=== PATIENT | female | born 1945 | race Caucasian/White ===

== ENCOUNTER → 2019-11-20 | Outpatient (CLI) | payer MEDICARE, MEDICAID | END | disposition home or self-care (01) | LOC: CFH 11:34 | PROVIDERS: ATTEND Nurse Practitioner | DX: Z12.31 Encounter for screening mammogram for malignant neoplasm of breast (principal); N63.12 Unspecified lump in the right breast, upper inner quadrant; M85.88 Other specified disorders of bone density and structure, other site; N95.9 Unspecified menopausal and perimenopausal disorder | CPT/HCPCS: 77080; 77067 ==

== ENCOUNTER → 2019-12-13 | Outpatient (CLI) | payer MEDICARE, MEDICAID | END | disposition home or self-care (01) | LOC: CFH 09:58 | PROVIDERS: ATTEND Internal Medicine Cardiovascular Disease | DX: I08.8 Other rheumatic multiple valve diseases (principal) | CPT/HCPCS: 93306 ==

== ENCOUNTER 2020-05-15 19:42 | Inpatient (IN) | payer MEDICARE, MEDICAID ==
[~2020-05-15] VITALS: Ht 170.2 cm; Wt 80.9 kg
[2020-05-15] MEDS ORDERED: FLEC50TA25 PO (19:55)
[2020-05-15] MEDS ORDERED: LEVO88TA4 PO (19:55)
[2020-05-15] MEDS ORDERED: APIX5TAB PO (19:55)
[2020-05-15] MEDS ORDERED: DILT120T3 PO (19:55)
--- NOTE | 2020-05-15 20:12 | NUR ---
Pt provided blankets, waiting for provider to evaluate. Pt provided call [facility] and instructed on use.
[2020-05-15 20:52] LABS: BASOPHILS # (AUTO) 0.03 x10^3/uL (0-0.1); BASOPHILS % (AUTO) 1 % (0-1); EOSINOPHILS % (AUTO) 1 % (1-7); LYMPHOCYTES # (AUTO) 1.52 x10^3/uL (1-3.4); LYMPHOCYTES % (AUTO) 22 % (22-44); MD NO; MEAN CORPUSCULAR HEMOGLOBIN 30.9 pg (27.0-34.8); MEAN CORPUSCULAR HGB CONC 33.5 g/dL (32.4-35.8); MEAN PLATELET VOLUME 7.9 fL (7.4-10.4); MONOCYTES # (AUTO) 0.57 x10^3/uL (0.2-0.8); MONOCYTES % (AUTO) 8 % (2-9); NEUTROPHILS # (AUTO) 4.68 x10^3/uL (1.8-6.8); NEUTROPHILS % (AUTO) 68 % (42-75); PLATELET COUNT 189 x10^3/uL (130-400); RED CELL DISTRIBUTION WIDTH 12.6 % (9.6-15.2)
[2020-05-15 21:01] LABS: ALANINE AMINOTRANSFERASE 15 U/L (12-78); ALBUMIN 3.3 g/dL (3.4-5.0); ANION GAP 5 mmol/L (5-15); CHLORIDE 104 mmol/L (98-107)
[2020-05-15 21:06] LABS: ALKALINE PHOSPHATASE 78 U/L (45-117); BILIRUBIN,TOTAL 0.3 mg/dL (0.2-1.0); FREE T4 (FREE THYROXINE) 0.99 ng/dL (0.76-1.46); TOTAL PROTEIN 6.4 g/dL (6.4-8.2); TROPONIN I < 0.015 ng/mL (0.000-0.045)
[2020-05-15] MEDS ORDERED: SODIUM CHLORIDE 0.9% 1,000 ML IV SCH (23:19)
[2020-05-15] MEDS ORDERED: hydrALAzine 20 MG/ML, 1ML IVPush PRN (23:30)
[2020-05-15] MEDS ORDERED: ONDANSETRON ODT 4 MG PO PRN (23:30)
[2020-05-15] MEDS ORDERED: LEVOTHYROXINE 25 MCG TABLET PO ONE (23:30)
[2020-05-15] MEDS ORDERED: morphine SULFATE 10 MG/ML, 1ML IVPush PRN (23:30)
[2020-05-15] MEDS ORDERED: ACETAMINOPHEN 325 MG TABLET PO PRN (23:30)
[2020-05-15] MEDS ORDERED: POLYETHYLENE GLYCOL 17 GM PACKET PO PRN (23:30)
[2020-05-15] MEDS ORDERED: DOCUSATE 100 MG CAPSULE PO PRN (23:30)
[2020-05-15] MEDS ORDERED: OXYcodone IR 5MG TABLET PO PRN (23:30)
[2020-05-15] MEDS ORDERED: BISACODYL 10 MG SUPP PR PRN (23:30)
[2020-05-15] MEDS ORDERED: ONDANSETRON 2MG/ML, 2ML IVPush PRN (23:30)
[2020-05-15] MEDS ORDERED: PROMETHAZINE 25 MG/ML, 1ML IM PRN (23:30)
[2020-05-16 00:17] VITALS: BP 150/73
[2020-05-16 02:18] VITALS: BP 151/89
[2020-05-16] MEDS: LEVOTHYROXINE 75 MCG TABLET PO SCH (05:30)
[2020-05-16 06:31] LABS: BASOPHILS # (AUTO) 0.03 x10^3/uL (0-0.1); BASOPHILS % (AUTO) 1 % (0-1); EOSINOPHILS # (AUTO) 0.09 x10^3/uL (0-0.4); EOSINOPHILS % (AUTO) 2 % (1-7); LYMPHOCYTES # (AUTO) 1.37 x10^3/uL (1-3.4); LYMPHOCYTES % (AUTO) 24 % (22-44); MD NO; MEAN CORPUSCULAR HEMOGLOBIN 30.7 pg (27.0-34.8); MEAN CORPUSCULAR HGB CONC 32.8 g/dL (32.4-35.8); MEAN PLATELET VOLUME 8.3 fL (7.4-10.4); MONOCYTES # (AUTO) 0.46 x10^3/uL (0.2-0.8); MONOCYTES % (AUTO) 8 % (2-9); NEUTROPHILS # (AUTO) 3.85 x10^3/uL (1.8-6.8); NEUTROPHILS % (AUTO) 66 % (42-75); PLATELET COUNT 212 x10^3/uL (130-400); RED BLOOD COUNT 4.49 x10^6/uL (3.82-5.3); RED CELL DISTRIBUTION WIDTH 12.8 % (9.6-15.2)
[2020-05-16 06:39] LABS: CHLORIDE 108 mmol/L (98-107)
[2020-05-16 06:46] LABS: ALANINE AMINOTRANSFERASE 16 U/L (12-78); ALBUMIN 3.6 g/dL (3.4-5.0); ALKALINE PHOSPHATASE 83 U/L (45-117); ANION GAP 5 mmol/L (5-15); BILIRUBIN,TOTAL 0.6 mg/dL (0.2-1.0); CALCIUM 8.5 mg/dL (8.5-10.1); CHOL/HDL RATIO 3.9; CHOLESTEROL, TOTAL 222 mg/dL (140-239); HDL CHOL % 26 % (28-40); HDL CHOLESTEROL (DIRECT) 57 mg/dL (40-60); LDL CHOLESTEROL,CALCULATED 141 mg/dL (54-169); LDL/HDL RATIO 2.5 (0.5-3.0); TOTAL PROTEIN 6.9 g/dL (6.4-8.2); TRIGLYCERIDES 122 mg/dL (50-200); VLDL CHOLESTEROL 24 mg/dL (0-25)
[2020-05-16 07:11] VITALS: BP 137/80
[2020-05-16] MEDS ORDERED: DILTIAZEM 120 MG TABLET PO SCH (09:00)
[2020-05-16] MEDS ORDERED: APIXABAN 5 MG TABLET PO SCH (09:00)
[2020-05-16] MEDS: FLECAINIDE 50MG TABLET PO SCH ×2 (09:38→20:21)
[2020-05-16 12:37] VITALS: BP 169/78
[2020-05-16] MEDS: DILTIAZEM 120 MG CAP.ER.24H PO SCH (12:43)
[2020-05-16 20:19] VITALS: BP 124/65
[2020-05-17 00:25] VITALS: BP 122/75
[2020-05-17] MEDS: LEVOTHYROXINE 75 MCG TABLET PO SCH (05:27)
[2020-05-17 06:54] VITALS: BP 131/77
[2020-05-17] MEDS ORDERED: REGADENOSON 0.4 MG/5 ML SYRINGE ONE (08:51)
[2020-05-17] MEDS: FLECAINIDE 50MG TABLET PO SCH (10:16)
[2020-05-17] MEDS: DILTIAZEM 120 MG CAP.ER.24H PO SCH (10:18)
[2020-05-17] MEDS ORDERED: LEVO75TA PO (12:38)
[2020-05-17 14:27] VITALS: BP 123/73
== END 2020-05-17 14:57 | disposition home or self-care (01) | DRG 309 ==
LOC: ED 21:01 → EDIP 22:25 → 4EST 05-16 00:01 → DCLOUNGE 05-17 14:52
PROVIDERS: ADMIT Internal Medicine; ATTEND Hospitalist
DX: I49.5 Sick sinus syndrome (principal); D68.69 Other thrombophilia; I48.0 Paroxysmal atrial fibrillation; E03.9 Hypothyroidism, unspecified; I10 Essential (primary) hypertension; E78.5 Hyperlipidemia, unspecified; F41.9 Anxiety disorder, unspecified; Z85.3 Personal history of malignant neoplasm of breast; Z87.891 Personal history of nicotine dependence
CPT/HCPCS: 36415; 71045; 78452; 80053; 80061; 83036; 83605; 83735; 84439; 84443; 84484; 85025; 93005; 93017; 93306; G0378; J2785; A9502; J7030

== ENCOUNTER → 2020-06-05 | Outpatient (CLI) | payer MEDICARE, MEDICAID ==
[~2020-06-05] MED LIST: APIX5TAB PO; DILT120T3 PO; FLEC50TA25 PO; LEVO75TA PO; LEVO88TA4 PO
[2020-06-05 12:53] LABS: BASOPHILS # (AUTO) 0.02 x10^3/uL (0-0.1); BASOPHILS % (AUTO) 0 % (0-1); EOSINOPHILS # (AUTO) 0.08 x10^3/uL (0-0.4); EOSINOPHILS % (AUTO) 1 % (1-7); LYMPHOCYTES # (AUTO) 1.55 x10^3/uL (1-3.4); LYMPHOCYTES % (AUTO) 27 % (22-44); MD NO; MEAN CORPUSCULAR HEMOGLOBIN 30.9 pg (27.0-34.8); MEAN CORPUSCULAR HGB CONC 33.2 g/dL (32.4-35.8); MEAN CORPUSCULAR VOLUME 93.1 fL (80-100); MEAN PLATELET VOLUME 8.3 fL (7.4-10.4); MONOCYTES # (AUTO) 0.44 x10^3/uL (0.2-0.8); MONOCYTES % (AUTO) 8 % (2-9); NEUTROPHILS # (AUTO) 3.61 x10^3/uL (1.8-6.8); NEUTROPHILS % (AUTO) 63 % (42-75); PLATELET COUNT 194 x10^3/uL (130-400); RED BLOOD COUNT 4.15 x10^6/uL (3.82-5.3); RED CELL DISTRIBUTION WIDTH 13.2 % (9.6-15.2)
[2020-06-05 13:01] LABS: CHLORIDE 108 mmol/L (98-107)
[2020-06-05 13:06] LABS: ANION GAP 6 mmol/L (5-15); CALCIUM 8.8 mg/dL (8.5-10.1); CREATININE 0.65 mg/dL (0.55-1.02)
== END | disposition home or self-care (01) ==
LOC: CFH 08:43
PROVIDERS: ATTEND Nurse Practitioner Family
DX: E03.9 Hypothyroidism, unspecified (principal); E78.2 Mixed hyperlipidemia; I48.0 Paroxysmal atrial fibrillation; I49.5 Sick sinus syndrome
CPT/HCPCS: 36415; 80048; 85025

== ENCOUNTER 2020-06-09 10:31 | Observation (INO) | payer MEDICARE, MEDICAID ==
[~2020-06-09] VITALS: Ht 170.2 cm; Wt 77.3 kg
[2020-06-09] MEDS ORDERED: Vitamin D3 PO (11:29)
[2020-06-09] MEDS ORDERED: VIT1TABL46 PO (11:29)
[2020-06-09] MEDS ORDERED: LEVO75TA PO (11:29)
[2020-06-09] MEDS ORDERED: DILT-8 PO (11:29)
[2020-06-09] MEDS ORDERED: POTA20TA14 PO (11:29)
[2020-06-09] MEDS ORDERED: PLEASE ENTER HEIGHT AND WEIGHT MC SCH (11:30)
[2020-06-09] MEDS ORDERED: CEFAZOLIN PMX 1GM/50ML 50 ML IVPB ONE (11:30)
[2020-06-09 11:32] VITALS: BP 144/81
[2020-06-09] MEDS ORDERED: DIPHENHYDRAMINE 50 MG/ML, 1ML ONE (14:08)
[2020-06-09] MEDS ORDERED: FENTANYL PF 100 MCG/2ML ONE (14:12)
[2020-06-09] MEDS ORDERED: MIDAZOLAM 1 MG/ML, 2ML ONE (14:12)
[2020-06-09] MEDS: SODIUM CHLORIDE 0.9% 1,000 ML IV SCH ×2 (14:58→19:03)
[2020-06-09] MEDS ORDERED: HOLD MEDICATION MC PRN (15:00)
[2020-06-09] MEDS ORDERED: HYDROcodone/APAP 5/325 TABLET PO PRN (15:00)
[2020-06-09] MEDS ORDERED: CEFAZOLIN PMX 1GM/50ML 50 ML IVPB SCH (15:00)
[2020-06-09 19:11] VITALS: BP 125/78
[2020-06-09] MEDS: FLECAINIDE 50MG TABLET PO SCH (20:59)
[2020-06-09] MEDS: CEFAZOLIN PMX 1GM/50ML 50 ML IVPB SCH (20:59)
[2020-06-09] MEDS: SODIUM CHLORIDE FLUSH 10ML SYR IVF SCH (20:59)
[2020-06-09] MEDS: APIXABAN 5 MG TABLET PO SCH (20:59)
[2020-06-10 01:24] VITALS: BP 121/75
[2020-06-10] MEDS: SODIUM CHLORIDE 0.9% 1,000 ML IV SCH (03:11)
[2020-06-10] MEDS: CEFAZOLIN PMX 1GM/50ML 50 ML IVPB SCH (05:29)
[2020-06-10] MEDS ORDERED: LEVOTHYROXINE 75 MCG TABLET PO SCH (06:00)
[2020-06-10 07:00] VITALS: BP 123/77
[2020-06-10] MEDS: APIXABAN 5 MG TABLET PO SCH (07:11)
[2020-06-10] MEDS ORDERED: ACETAMINOPHEN 325 MG TABLET PO PRN (08:30)
[2020-06-10] MEDS ORDERED: ACETAMINOPHEN 325 MG TABLET ONE (08:32)
[2020-06-10] MEDS: FLECAINIDE 50MG TABLET PO SCH (08:35)
[2020-06-10] MEDS: SODIUM CHLORIDE FLUSH 10ML SYR IVF SCH (08:36)
[2020-06-10] MEDS ORDERED: POTASSIUM CHLORIDE 20 MEQ TAB.ER.PRT PO SCH (09:00)
[2020-06-10] MEDS ORDERED: VITAMIN D3 PO SCH (09:00)
[2020-06-10] MEDS ORDERED: DILTIAZEM 120 MG CAP.ER.24H PO SCH (09:00)
[2020-06-10] MEDS ORDERED: MULTIVITS,STRESS FORMULA 1 TABLET PO SCH (09:00)
[2020-06-10] MEDS ORDERED: ACET325T26 PO (09:11)
== END 2020-06-10 10:20 | disposition home or self-care (01) ==
LOC: CACL 10:31 → 5SO 14:48 → CACL 14:58 → DCLOUNGE 06-10 10:17
PROVIDERS: ADMIT Internal Medicine Cardiovascular Disease; ATTEND Internal Medicine Cardiovascular Disease
DX: I48.0 Paroxysmal atrial fibrillation (principal); E78.2 Mixed hyperlipidemia; E03.9 Hypothyroidism, unspecified; I49.5 Sick sinus syndrome; Z79.899 Other long term (current) drug therapy; Z79.01 Long term (current) use of anticoagulants; Z95.0 Presence of cardiac pacemaker
CPT/HCPCS: 33208; 71045; 96365; 96366; 99156; 99157; C1779; C1785; C1892; G0378; J0690; J1200; J2250; J3010; J3490

== ENCOUNTER 2021-04-13 12:45 | Outpatient (CLI) | payer MEDICARE, MEDICAID ==
[~2021-04-13 12:45] MED LIST changes: +ACET325T26 PO; +DILT-8 PO; +POTA20TA14 PO; +VIT1TABL46 PO; +Vitamin D3 PO
== END 2021-04-13 23:59 | disposition home or self-care (01) ==
LOC: CFH 12:45
PROVIDERS: ATTEND Nurse Practitioner Family
DX: Z12.31 Encounter for screening mammogram for malignant neoplasm of breast (principal)
CPT/HCPCS: 77063; 77067